=== PATIENT | female | born 1950 | race Caucasian/White ===

== ENCOUNTER 2020-09-25 06:27 | Day surgery (SDC) | payer MEDICARE ==
[2020-09-20 10:30] LABS: BASOPHILS # (AUTO) 0.1 X10'3 (0-0.2); BASOPHILS % (AUTO) 1.2 % (0-1); EOSINOPHILS # (AUTO) 0.1 X10'3 (0-0.9); EOSINOPHILS % (AUTO) 3.4 % (0-6); LYMPHOCYTES # (AUTO) 1.5 X10'3 (1.1-4.8); LYMPHOCYTES % (AUTO) 35.4 % (21-51); MEAN CORPUSCULAR HEMOGLOBIN 28.5 PG (27.0-31.0); MEAN CORPUSCULAR HGB CONC 33.2 g/dL (33.0-36.5); MEAN PLATELET VOLUME 7.5 FL (7.4-10.4); MONOCYTES # (AUTO) 0.4 X10'3 (0-0.9); MONOCYTES % (AUTO) 8.4 % (2-12); NEUTROPHILS # (AUTO) 2.2 X10'3 (1.8-7.7); NEUTROPHILS % (AUTO) 51.6 % (42-75); PRE OP HEMOGLOBIN 13.9 g/dL (12.0-16.0); PRE OP PLATELET COUNT 215 X10'3 (140-440); RED BLOOD COUNT 4.88 X10'6 (4.20-5.60); RED CELL DISTRIBUTION WIDTH 13.1 % (11.5-14.5)
[2020-09-20 10:44] LABS: CLARITY,URINE CLEAR (Clear); COLOR,URINE STRAW (Yellow); GLUCOSE, URINE NEGATIVE (Neg); KETONES,URINE NEGATIVE (Neg); LEUKOCYTE ESTERASE ,URINE NEGATIVE (Neg); NITRITES, URINE NEGATIVE (Neg); OCCULT BLOOD,URINE NEGATIVE (Neg); PROTEIN,URINE NEGATIVE (Neg); UROBILINOGEN,URINE 0.2 E.U/dL (0.2-1.0)
[2020-09-20 10:52] LABS: UA COLLECTION TYPE CLN CATCH MIDSTREAM
[2020-09-20 10:54] LABS: ALBUMIN 3.4 G/DL (3.4-5.0); ALKALINE PHOSPHATASE 85 IU/L (46-116); BLOOD UREA NITROGEN 14 MG/DL (7-18); BUN/CREATININE RATIO 14.3 (6.6-38.0); CALCIUM 8.9 MG/DL (8.5-10.1); CHLORIDE 107 MMOL/L (99-107); CREATININE 0.98 MG/DL (0.40-0.90); PRE OP ALT 35 U/L (30-65); PRE OP ANION GAP 3 (8-16); PRE OP AST 28 U/L (10-37); PRE OP BILIRUB, TOTAL 0.6 MG/DL (0.0-1.0); PRE OP GLUCOSE 83 MG/DL (70-104); PRE OP POTASSIUM 4.1 MMOL/L (3.4-5.1); PRE OP SODIUM 138 MMOL/L (135-145); TOTAL CARBON DIOXIDE 28.1 MMOL/L (24-32); TOTAL PROTEIN 6.8 G/DL (6.4-8.2); eGFR 56 ML/MIN
[~2020-09-25] VITALS: Ht 162.6 cm; Wt 63.5 kg
[~2020-09-25 06:27] MED LIST: CHOL100025 PO; DOXY40CP PO; ETOD300C29 PO; LEVO125T8 PO; MULT-1085 PO; OMEP40CA13 PO; TRAM50TA2 PO; ceFAZolin 2gm in dextrose, iso 50 ML IV ONE; famotidine 20mg tablet PO ONE; ringers solution, lacted 1,000 ML IV SCH
[2020-09-25 06:35] VITALS: BP 157/86
[2020-09-25] MEDS ORDERED: BUPIVAcaine/PF 2.5 mg/ml (0.25%) 30ml vial ONE (09:01)
[2020-09-25] MEDS ORDERED: LIDOcaine 1%/PF 5ML 10 MG/ML VIAL ONE (09:04)
[2020-09-25] MEDS ORDERED: dexamethasone sod phosphate 10mg/ml inj ONE (09:04)
[2020-09-25] MEDS ORDERED: propofol 10mg/ml 20ml vial IV ONE (09:04)
[2020-09-25] MEDS ORDERED: sevoflurane 250ml liquid IH ONE (09:04)
[2020-09-25] MEDS ORDERED: ondansetron/PF 4mg/2ml inj ONE (09:04)
[2020-09-25] MEDS ORDERED: proCHLORperazine 10 MG/2 ml inj IV PRN (09:05)
[2020-09-25] MEDS ORDERED: morphine 4 MG/ML inj SYRINge IV PRN (09:05)
[2020-09-25] MEDS ORDERED: ringers solution, lacted 1,000 ML IV SCH (09:05)
[2020-09-25] MEDS ORDERED: ondansetron/PF 4mg/2ml inj IV PRN (09:05)
[2020-09-25] MEDS ORDERED: meperidine/PF 25mg/ml syringe IV PRN ×3 (09:05)
[2020-09-25] MEDS ORDERED: morphine 2 MG/ML inj. syringe IV PRN (09:05)
[2020-09-25] MEDS ORDERED: fentaNYL/PF 50MCG/1 ML 2ML syringe ONE (09:07)
[2020-09-25 09:49] VITALS: BP 128/71
--- NOTE | 2020-09-25 09:50 | NUR ---
Received from OR via [facility], accompanied by Anesthesiologist Mc and report given by Anesthesiolgist. Pt sleepy and not yet responsive, all VS stable, sites to right thigh CDI with steri strips in place to sites x4. 20G left AC in plce IVF LR at 100cc/hr. Mask to 10L sats 100%.
[2020-09-25 10:00] VITALS: BP 132/66
[2020-09-25 10:10] VITALS: BP 140/69
[2020-09-25 10:20] VITALS: BP 150/70
[2020-09-25 10:30] VITALS: BP 142/62
--- NOTE | 2020-09-25 10:59 | NUR ---
Pt discharged to vehicle without incident. IV DC'd and dressings remain CDI. all belongings returned to patient and she is dressed in her own clothes. She and verbalized udnerstand of all DC instructions. 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 All questions answered.
== END 2020-09-25 10:59 | disposition home or self-care (01) ==
LOC: PAS 06:27
PROVIDERS: ATTEND Surgery
DX: D17.23 Benign lipomatous neoplasm of skin and subcutaneous tissue of right leg (principal); K21.9 Gastro-esophageal reflux disease without esophagitis; M19.90 Unspecified osteoarthritis, unspecified site; M06.9 Rheumatoid arthritis, unspecified; G89.29 Other chronic pain; Z20.822 Contact with and (suspected) exposure to COVID-19; Z79.899 Other long term (current) drug therapy; Z98.890 Other specified postprocedural states; Z83.3 Family history of diabetes mellitus; Z88.1 Allergy status to other antibiotic agents; Z90.49 Acquired absence of other specified parts of digestive tract; Z86.718 Personal history of other venous thrombosis and embolism; Z90.721 Acquired absence of ovaries, unilateral; Z85.820 Personal history of malignant melanoma of skin
CPT/HCPCS: 27327; 36415; 80053; 81003; 82948; 85025; 87635; 93005; J1100; J2405; J2704; J3010; J3490; A4618; J7120